=== PATIENT | female | born 1945 | race Caucasian/White ===

== ENCOUNTER → 2016-09-15 | Outpatient (CLI) | payer MEDICARE, BC ==
--- NOTE | 2016-09-16 12:49 | MM ---
Reason for exam: screening (asymptomatic). Last mammogram was performed 1 year ago. History: Patient is postmenopausal. Physical Findings: A clinical breast exam by your physician is recommended on an annual basis and results should be correlated with mammographic findings. MG 3D Screening Mammo W/Cad Bilateral CC and MLO view(s) were taken. Prior study comparison: September 15, 2015, bilateral MG 3d screening mammo w/cad. September 08, 2014, bilateral MG screening mammo w CAD. March 27, 2013, bilateral digital screening mammo w/CAD. The breast tissue is almost entirely fat. Asymmetric breast tissue in the right breast stable. There is no discrete abnormality. ASSESSMENT: Negative, BI-RAD 1 RECOMMENDATION: Routine screening mammogram of both breasts in 1 year.
== END | disposition home or self-care (01) ==
LOC: RADMAMWWP 09:42
PROVIDERS: ATTEND Family Medicine
DX: Z12.31 Encounter for screening mammogram for malignant neoplasm of breast (principal)
CPT/HCPCS: 77063; G0202

== ENCOUNTER → 2018-01-16 | Outpatient (CLI) | payer MEDICARE, BC ==
--- NOTE | 2018-01-17 11:42 | MM ---
Reason for exam: screening (asymptomatic). Last mammogram was performed 1 year and 4 months ago. History: Patient is postmenopausal. Physical Findings: A clinical breast exam by your physician is recommended on an annual basis and results should be correlated with mammographic findings. MG 3D Screening Mammo W/Cad Bilateral CC and MLO view(s) were taken. Prior study comparison: September 15, 2016, bilateral MG 3d screening mammo w/cad. September 15, 2015, bilateral MG 3d screening mammo w/cad. There are scattered fibroglandular densities. No significant changes when compared with prior studies. ASSESSMENT: Negative, BI-RAD 1 RECOMMENDATION: Routine screening mammogram of both breasts in 1 year.
== END | disposition home or self-care (01) ==
LOC: RADMAMWWP 09:08
PROVIDERS: ATTEND Family Medicine
DX: Z12.31 Encounter for screening mammogram for malignant neoplasm of breast (principal)
CPT/HCPCS: 77063; 77067

== ENCOUNTER → 2018-09-20 | Outpatient (CLI) | payer MEDICARE, BC ==
--- NOTE | 2018-09-20 12:17 | BD ---
EXAMINATION TYPE: Axial Bone Density DATE OF EXAM: 09/20/2018 COMPARISON: 2016 CLINICAL HISTORY: Postmenopausal female Height: 62.25 Weight: 200 FRAX RISK QUESTIONS: Alcohol (3 or more units per day): no Family History (Parent hip fracture): no Glucocorticoids (More than 3mos): no (Ex: prednisone, prednisolone, methylprednisolone, dexamethasone, and hydrocortisone). History of Fracture in Adulthood: yes, finger Secondary Osteoporosis: 1. Type 1 Diabetes: no 2. Hyperthyroidism: no 3. Menopause before 45: no 4. Malnutrition: no 5. Chronic liver disease: no Rheumatoid Arthritis: no Current Tobacco Use: no RISK FACTORS HISTORY OF: Family History of Osteoporosis: yes Active: yes Diet low in dairy products/other sources of calcium: several times a week has several servings servi ngs Postmenopausal woman: yes Take estrogen and/or progesterone medications: no Lost more than 2 inches in height since high school: unsure, height may have once been about 64 inche s Frequent falls: no Poor Health: blood pressure concerns Hyperparathyroidism: no Adrenal Insufficiency: no MEDICATIONS: Prednisone or other steroids: no Thyroid Medications: no Osteoporosis Medications: no Additional Medications: blood pressure meds ; medication for skin problem 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 Bone mineral density as measured about the Lumbar spine is: ----- L1-L4(G/cm2): 1.374 T Score Values are as follows: ----- L2: 0.8 ----- L3: 2.9 ----- L4: 2.7 ----- L1-L4: 1.6 Bone mineral density has: Increased 1.0% since study of: 09/15/2015 Bone mineral density about the R hip (g/cm2): 0.942 Bone mineral density about the L hip (g/cm2): 0.966 T Score values are as follows: -----R Neck: -0.7 -----L Neck: -0.5 -----R Total: 1.4 -----L Total: 1.3 Bone mineral density has: Decreased -0.7% since study of: 09/15/2015 Bone mineral density about the R Wrist (g/cm2): Bone mineral density about the L Wrist (g/cm2): T Score values are as follows: -----Dist. R+U: -----Prox. R+U: -----Radius total: Bone mineral density has: % since study of: IMPRESSION: Normal (Values between +1 and -1 indicate normal bone mass). Consider repeating this study in 5 year s or sooner if there is some new clinical indication. NOTE: T-SCORE=SD OF THE YOUNG ADULT MEAN.
== END | disposition home or self-care (01) ==
LOC: RADBDWWP 10:17
PROVIDERS: ATTEND Family Medicine
DX: Z78.0 Asymptomatic menopausal state (principal)
CPT/HCPCS: 77080

== ENCOUNTER → 2019-04-23 | Outpatient (CLI) | payer MEDICARE, BC ==
--- NOTE | 2019-04-24 14:48 | MM ---
Reason for exam: screening (asymptomatic). Last mammogram was performed 1 year and 3 months ago. History: Patient is postmenopausal. Physical Findings: A clinical breast exam by your physician is recommended on an annual basis and results should be correlated with mammographic findings. MG 3D Screening Mammo W/Cad Bilateral CC and MLO view(s) were taken. Prior study comparison: January 16, 2018, bilateral MG 3d screening mammo w/cad. September 15, 2016, bilateral MG 3d screening mammo w/cad. There are scattered fibroglandular densities. There is no discrete abnormality. ASSESSMENT: Negative, BI-RAD 1 RECOMMENDATION: Routine screening mammogram of both breasts in 1 year.
== END | disposition home or self-care (01) ==
LOC: RADMAMWWP 10:56
PROVIDERS: ATTEND Family Medicine
DX: Z12.31 Encounter for screening mammogram for malignant neoplasm of breast (principal)
CPT/HCPCS: 77063; 77067

== ENCOUNTER → 2020-11-13 | Outpatient (CLI) | payer MEDICARE, BC ==
--- NOTE | 2020-11-17 08:52 | MM ---
Reason for exam: screening (asymptomatic). Last mammogram was performed 1 year and 7 months ago. History: Patient is postmenopausal. Physical Findings: A clinical breast exam by your physician is recommended on an annual basis and results should be correlated with mammographic findings. MG 3D Screening Mammo W/Cad Bilateral CC and MLO view(s) were taken. Prior study comparison: April 23, 2019, bilateral MG 3d screening mammo w/cad. January 16, 2018, bilateral MG 3d screening mammo w/cad. The breast tissue is almost entirely fat. No significant changes when compared with prior studies. ASSESSMENT: Negative, BI-RAD 1 RECOMMENDATION: Routine screening mammogram of both breasts in 1 year.
== END | disposition home or self-care (01) ==
LOC: RADMAMWWP 06:48
PROVIDERS: ATTEND Family Medicine
DX: Z12.31 Encounter for screening mammogram for malignant neoplasm of breast (principal)
CPT/HCPCS: 77063; 77067

== ENCOUNTER → 2021-11-04 | Outpatient (CLI) | payer MEDICARE, BC ==
[2021-11-04 11:14] VITALS: BMI 36.6
== END | disposition home or self-care (01) ==
LOC: DBWHC3 09:46
PROVIDERS: ATTEND Family Medicine
DX: E11.9 Type 2 diabetes mellitus without complications (principal); Z88.2 Allergy status to sulfonamides
CPT/HCPCS: G0108 ×3

== ENCOUNTER → 2022-02-23 | Outpatient (CLI) | payer MEDICARE, BC ==
--- NOTE | 2022-02-24 09:13 | MM ---
Reason for Exam: Screening (asymptomatic). Last mammogram was performed 1 year(s) and 3 month(s) ago. Patient History: Menarche at age 11. First Full-Term at age 29. Late child-bearing (after 30). Postmenopausal. Risk Values: Shahrzad 5 year model risk: 2.4%. NCI Lifetime model risk: 4.6%. Prior Study Comparison: 01/16/2018 Bilateral Screening Mammogram, [facility]. 04/23/2019 Bilateral Screening Mammogram, [facility]. 11/13/2020 Bilateral Screening Mammogram, [facility]. Tissue Density: There are scattered fibroglandular densities. Findings: Analyzed By CAD. There is no suspicious group of microcalcifications or new suspicious mass in either breast. No significant change from prior exams. Overall Assessment: Negative, BI-RAD 1 Management: Screening Mammogram of both breasts in 1 year. A clinical breast exam by your physician is recommended on an annual basis and results should be correlated with mammographic findings. Electronically signed and approved by: Yomi Whitman D.O.
== END | disposition home or self-care (01) ==
LOC: RADMAMWWP 16:19
PROVIDERS: ATTEND Family Medicine
DX: Z12.31 Encounter for screening mammogram for malignant neoplasm of breast (principal); Z78.0 Asymptomatic menopausal state
CPT/HCPCS: 77063; 77067

== ENCOUNTER → 2023-02-24 | Outpatient (CLI) | payer MEDICARE, BC ==
--- NOTE | 2023-02-24 13:36 | BD ---
EXAMINATION TYPE: Axial Bone Density DATE OF EXAM: 02/24/2023 CLINICAL HISTORY: 77 years old Female. ICD-10 CODE: Z780 ASYMPTOMATIC PUMA STATE Height: 62 Weight: 186 FRAX RISK QUESTIONS: Family History (Parent hip fracture): no History of Fracture in Adulthood: no Secondary Osteoporosis: no RISK FACTORS HISTORY OF: Family History of Osteoporosis: yes, mother and sister Active: yes Diet low in dairy products/other sources of calcium: no Postmenopausal woman: yes Lost more than 2 inches in height since high school: no Frequent falls: no Poor Health: no MEDICATIONS: Additional Medications: yes hbp meds, cholesterol meds, lupus meds, tremors EXAM MEASUREMENTS: Bone mineral densitometry was performed using the [employer] System. Bone mineral density as measured about the Lumbar spine is: ----- L1-L4(G/cm2): 1.527 T Score Values are as follows: ----- L1: 1.4 ----- L2: 2.6 ----- L3: 3.5 ----- L4: 3.8 ----- L1-L4: 2.9 Z Score Values are as follows: ----- L1: 2.5 ----- L2: 3.8 ----- L3: 4.7 ----- L4: 4.9 ----- L1-L4: 4.1 Bone mineral density has: Increased 11.1% since study of: 09/20/2018 Bone mineral density about the R hip (g/cm2): 1.165 Bone mineral density about the L hip (g/cm2): 1.154 T Score values are as follows: -----R Neck: -0.7 -----L Neck: -0.5 -----R Total: 1.2 -----L Total: 1.2 Z Score values are as follows: -----R Neck: 1.0 -----L Neck: 1.1 -----R Total: 2.7 -----L Total: 2.6 Bone mineral density has: Decreased 1.1% since study of: 09/20/2018 FRAX%s: The graph provided illustrates a 9.5% chance for a major osteoporotic fx and a 1.4% chance fo r the hips probability for fx in 10 years time. IMPRESSION: Normal (Values between +1 and -1 indicate normal bone mass). Consider repeating this study in 5 year s or sooner if there is some new clinical indication. NOTE: T-SCORE=SD OF THE YOUNG ADULT MEAN.
--- NOTE | 2023-02-27 08:50 | MM ---
Reason for Exam: Screening (asymptomatic). Last screening mammogram was performed 12 month(s) ago. Patient History: Menarche at age 11. First Full-Term at age 29. Late child-bearing (after 30). Postmenopausal. Risk Values: Shahrzad 5 year model risk: 2.4%. NCI Lifetime model risk: 4.3%. Prior Study Comparison: 04/23/2019 Bilateral Screening Mammogram, [facility]. 11/13/2020 Bilateral Screening Mammogram, [facility]. 02/23/2022 Bilateral MG 3D screening mammo w/cad, [facility]. Tissue Density: The breast tissue is extremely dense which could obscure a lesion on mammography. Findings: Analyzed By CAD. There is no suspicious group of microcalcifications or new suspicious mass in either breast. Overall Assessment: Benign, BI-RAD 2 Management: Screening Mammogram of both breasts in 1 year. . Patient should continue monthly self-breast exams. A clinical breast exam by your physician is recommended on an annual basis. This exam should not preclude additional follow-up of suspicious palpable abnormalities. Note on Shahrzad scores and lifetime risk: 1. A Shahrzad score greater than 3% is considered moderate risk. If this is the case, consider specialist referral to assess eligibility for a risk reducing agent. 2. If overall lifetime risk for the development of breast cancer is 20% or higher, the patient may qualify for future screening with alternating mammogram and breast MRI. Electronically signed and approved by: Willie Weber M.D. Radiologis
== END | disposition home or self-care (01) ==
LOC: RADBDWWP 12:24
PROVIDERS: ATTEND Family Medicine
DX: Z12.31 Encounter for screening mammogram for malignant neoplasm of breast (principal); Z78.0 Asymptomatic menopausal state
CPT/HCPCS: 77063; 77067; 77080

== ENCOUNTER → 2024-02-26 | Outpatient (CLI) | payer MEDICARE, BC ==
--- NOTE | 2024-02-27 10:14 | MM ---
Reason for Exam: Screening (asymptomatic). Last screening mammogram was performed 12 month(s) ago. Patient History: Menarche at age 11. First Full-Term at age 29. Late child-bearing (after 30). Postmenopausal. Risk Values: Shahrzad 5 year model risk: 2.3%. NCI Lifetime model risk: 3.9%. Prior Study Comparison: 11/13/2020 Bilateral Screening Mammogram, [facility]. 02/23/2022 Bilateral MG 3D screening mammo w/cad, [facility]. 02/24/2023 Bilateral MG 3D screening mammo w/cad, [facility]. Tissue Density: There are scattered areas of fibroglandular density. Findings: Analyzed By CAD. There is no suspicious group of microcalcifications or new suspicious mass in either breast. Overall Assessment: Negative, BI-RAD 1 Management: Screening Mammogram of both breasts in 1 year. . Patient should continue monthly self-breast exams. A clinical breast exam by your physician is recommended on an annual basis. This exam should not preclude additional follow-up of suspicious palpable abnormalities. Note on Shahrzad scores and lifetime risk: 1. A Shahrzad score greater than 3% is considered moderate risk. If this is the case, consider specialist referral to assess eligibility for a risk reducing agent. 2. If overall lifetime risk for the development of breast cancer is 20% or higher, the patient may qualify for future screening with alternating mammogram and breast MRI. [facility], , 02/27/2024 10:11 AM. Electronically signed and approved by: Willie Weber M.D. Radiologis
== END | disposition home or self-care (01) ==
LOC: RADMAMWWP 10:23
PROVIDERS: ATTEND Family Medicine
DX: Z12.31 Encounter for screening mammogram for malignant neoplasm of breast (principal); R92.323 Mammographic fibroglandular density, bilateral breasts; Z78.0 Asymptomatic menopausal state
CPT/HCPCS: 77063; 77067